=== PATIENT | male | born 1975 | race Caucasian/White ===

== ENCOUNTER 2016-09-07 16:09 | Emergency (ER) | payer OTHER ==
[2016-09-07 16:32] VITALS: RESP 18; TEMP 97.6
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
--- NOTE | 2016-09-08 11:55 | DI ---
RIGHT SHOULDER, 09/07/2016 3:32 PM: Clinical History: Pain and deformity of the right shoulder. Previous Exam: None at this facility. 2 views are submitted. There is no acute soft tissue, osseous, or joint abnormality. Reading: Normal right shoulder exam.
== END 2016-09-07 17:23 | disposition home or self-care (01) ==
LOC: ER 16:09
DX: S43.004A Unspecified dislocation of right shoulder joint, initial encounter (principal); X50.1XXA Overexertion from prolonged static or awkward postures, initial encounter; Y99.0 Civilian activity done for income or pay
CPT/HCPCS: 73030; 99282; 99283